=== PATIENT | female | born 2000 | race Caucasian/White ===

== ENCOUNTER 2022-10-17 13:10 | Emergency (ER) | payer BC, SELFPAY ==
[2022-10-17 13:36] VITALS: BP 128/71; PULSE 90; RESP 20; TEMP 36.9; O2SAT 100
--- NOTE | 2022-10-17 14:48 | ED.URI ---
HPI - URI/Sore Throat General Chief Complaint: Upper Respiratory Infection Stated Complaint: COUGH/SORE THROAT/HEADACHE/FEVER/ACHY Time Seen by Provider: 10/17/22 14:48 Source: patient and RN notes reviewed Mode of arrival: ambulatory Limitations: no limitations History of Present Illness MD elicited complaint: cough Related Data Home Medications Medication Instructions Recorded Confirmed No Home Medications 10/17/22 10/17/22 Allergies Allergy/AdvReac Type Severity Reaction Status Date / Time No Known Allergies Allergy Verified 10/17/22 14:24 Review of Systems Review of Systems: CONSTITUTIONAL: Denies malaise, chills, sweats, fever EYES: Denies visual changes, redness, or discharge ENT: Reports rhinorrhea, congestion, sinus pain, sore throat CARDIOVASCULAR: Denies chest pain, palpitations, edema RESPIRATORY: Reports cough, post nasal drainage. Denies dyspnea GASTROINTESTINAL: Denies abdominal pain, nausea, vomiting, diarrhea SKIN: Denies rash or itching MUSCULOSKELETAL: Denies myalgia [facility] Past Medical History Medical History (Updated 10/17/22 @ 14:54 by Kayla Hanson, SARTHAK) No pertinent past medical history Exam Narrative: GENERAL: midly Ill-appearing, nontoxic no acute distress. HEAD: Normocephalic EYES: PERRLA, conjunctivae clear ENT: Mucous membranes moist. TMs pearly pena with dull light reflex bilaterally; no tragal tenderness. Oropharynx mildly erythematous without lesions or exudate NECK: Supple. No lymphadenopathy CHEST: Clear to auscultation, breath sounds equal. HEART: Regular rate and rhythm. No murmur heard. SKIN: Warm, dry, no rash. NEURO: Alert and oriented x3. PSYCH: Normal mood and affect Course Course Emergency Course: Patient is aware of diagnosis, understands and agrees to treatment plan. Anticipatory guidance given. Patient agrees to follow-up as directed and is aware of reasons to seek care at the emergency department. Portions of this record may have been created with voice recognition software Level of Care: Express Care Visit Vital Signs Vital signs: Vital Signs Temperature 98.5 F 10/17/22 13:36 Pulse Rate 90 10/17/22 13:36 Respiratory Rate 20 10/17/22 13:36 Blood Pressure 128/71 10/17/22 13:36 Pulse Oximetry 100 10/17/22 13:36 Temperature 98.5 F 10/17/22 13:36 Pulse Rate 90 10/17/22 13:36 Respiratory Rate 20 10/17/22 13:36 Blood Pressure 128/71 10/17/22 13:36 Pulse Oximetry 100 10/17/22 13:36 reviewed MDM - URI/Sore Throat MDM Narrative Medical decision making narrative: strep negative. result reviewed with pt.she will test for covid at home today. Advised supportive measures and signs/symptoms to go to the ER. Pt is appropriate for outpt treatment and f/u. Differential Diagnosis Differential diagnosis: Likely upper respiratory infection, sinusitis, viral infection, influenza and pharyngitis Lab Data Labs: Strep Screen Presumptive Negative *(Reference Range: Negative)* Discharge Plan Discharge Clinical Impression: Viral infection Patient Disposition: Home, Self-Care Condition: Stable Instructions: Upper Respiratory Infection (ED) Additional Instructions: Rapid strep swab was negative today You will be notified in a few days if the culture comes back positive for strep, and appropriate antibiotics will be called in at that time. if symptoms are due to a viral illness, it is not treated with antibiotics. Viral symptoms can be present for up to 10-14 days. Recommend Flonase spray and Zyrtec for sinus congestion Cough syrup may cause drowsiness; avoid driving or take it at night time. Tylenol every 8 hours as needed for pain/fever Soft foods, cool liquids, warm tea. Gargle with warm saltwater twice a day. Chloraseptic spray and throat lozenges. Rest and stay hydrated. --Follow up with your PCP --Go to the ER immediately if you
== END 2022-10-17 14:57 | disposition home or self-care (01) ==
PROVIDERS: Emergency Provider Nurse Practitioner Family
DX: B34.9 Viral infection, unspecified (principal)
CPT/HCPCS: 87081; 87880; 99213; G0463